=== PATIENT | male | born 1980 | race African-American/Black ===

== ENCOUNTER 2019-04-14 18:08 | Emergency (ER) | payer OTHER ==
[~2019-04-14] VITALS: Ht 180.3 cm; Wt 79.5 kg
[2019-04-14] MEDS ORDERED: LIDOCAINE 1% 10 ML VIAL INJ ONE (19:00)
[2019-04-14] MEDS ORDERED: POVIDONE-IODINE 10% 15 ML SOLUTION UD TP ONE (19:00)
[2019-04-14] MEDS ORDERED: IBUPROFEN 800 MG TABLET PO ONE (19:00)
[2019-04-14] MEDS ORDERED: PERTUSS(ACELL),DIPH,TET VAC/PF 0.5 ML VIAL IM ONE (19:00)
[2019-04-14] MEDS ORDERED: BACITRACIN 0.9 GM PACKET OINTMENT TP ONE ×2 (19:45)
[2019-04-14 20:00] VITALS: BP 118/68
== END 2019-04-14 20:12 | disposition home or self-care (01) ==
LOC: EMS 18:09
DX: S01.112A Laceration without foreign body of left eyelid and periocular area, initial encounter (principal); F12.90 Cannabis use, unspecified, uncomplicated; W45.8XXA Other foreign body or object entering through skin, initial encounter; Y93.89 Activity, other specified; Y92.89 Other specified places as the place of occurrence of the external cause; Y99.8 Other external cause status
CPT/HCPCS: 12011; 90471; 90715; 99283; J3490